=== PATIENT | female | born 1990 | race Caucasian/White ===

== ENCOUNTER 2022-01-28 12:37 | Outpatient (CLI) | payer OTHER, SELFPAY ==
[2022-01-31 14:14] LABS: Dating LMP CONF by US; Family Hx Neural Tube Defect No; Gestati Age Calc at Collection 16 wks, 0 days; Insulin Req Maternal Diabetes No; Maternal Age At Delivery 30.8 yr; Maternal Race Nonblack; Maternal Screen Interpretation Screen Neg; MoM for AFP 1.01; Number of Fetuses Singleton; Patient's AFP 40 ng/mL; Patient's DIA 90 pg/mL; Smoking No
[2022-02-13 12:41] LABS: Client Provided Fam Hx of NTD NO
== END 2022-01-28 12:38 | disposition home or self-care (01) ==
PROVIDERS: PCP Obstetrics & Gynecology; Visit Provider Physician Assistant
DX: Z34.81 Encounter for supervision of other normal pregnancy, first trimester (principal); Z3A.12 12 weeks gestation of pregnancy
CPT/HCPCS: 81511

== ENCOUNTER 2022-02-24 13:47 | Outpatient (CLI) | payer OTHER, SELFPAY ==
--- NOTE | 2022-02-24 14:00 | CRLHL7_ITS ---
For Patients: As a result of the Century Cures Act, medical imaging exams and procedure reports are released immediately into your electronic medical record. You may view this report before your referring provider. If you have questions, please contact your health care provider. INDICATION: 2nd trimester anatomical survey. TECHNIQUE: Ultrasound OB pelvis transabdominal. Real-time webb-scale imaging of the fetus. COMPARISON: None. FINDINGS: Sonographic imaging demonstrates a single living intrauterine gestation. Fetus demonstrates a regular cardiac rate of 131 beats per minute. Fetus is in multiple positions during exam. The placenta lies posterior without evidence of placenta previa. Eccentric three-vessel placental cord insertion. Cord insert is 2.3 cm from the placental margin. Amniotic fluid volume appears normal. Single deepest pocket measures 4.2 cm Cervix is closed and measures 4.1 cm in length. Biometry: Biparietal diameter: 4.3 cm, 19 week 1 day, 21st percentile. Head circumference: 16.3 cm, 19 week 0 day, 11th percentile. Abdominal circumference: 14.3, 19 week 5 day, 37th percentile. Femoral length: 2.9 cm, 18 week 6 day, 13th percentile. The composite ultrasound gestational age is calculated at 19 week 2 day with an estimated sonographic due date of 07/19/2022. The weight is estimated at 283 grams, the 17 percentile. On anatomic survey, there is a normal appearance of the cerebral ventricles, cisterna magna and cerebellum. The nose, lips, and facial profile appear normal. The cervical, thoracic and lumbar spines are well visualized and appear normal. There is a normal four-chamber heart and the left and right ventricular outflow tracts appear normal. diaphragm, stomach, kidneys and bladder appear normal. There is a normal three-vessel cord and cord insertion site. The four extremities appear normal. IMPRESSION: 1.Single viable intrauterine . 2.No intrinsic abnormalities noted on anatomic survey. 3. Eccentric placental cord insertion. Dictated by Keegan Leo MD @ 02/24/2022 9:19:52 PM (Electronically Signed)
== END 2022-02-24 13:48 | disposition home or self-care (01) ==
LOC: US 13:48
PROVIDERS: PCP Obstetrics & Gynecology; Visit Provider Physician Assistant
DX: Z34.92 Encounter for supervision of normal pregnancy, unspecified, second trimester (principal); Z3A.19 19 weeks gestation of pregnancy
CPT/HCPCS: 76805

== ENCOUNTER 2022-04-22 12:44 | Outpatient (CLI) | payer OTHER, SELFPAY ==
[2022-04-24 23:22] LABS: Rapid Plasma Reagin (RPR) Non Reactive (Non Reactive)
== END 2022-04-22 12:45 | disposition home or self-care (01) ==
PROVIDERS: PCP Obstetrics & Gynecology; Visit Provider Registered Nurse
DX: Z34.93 Encounter for supervision of normal pregnancy, unspecified, third trimester (principal); Z3A.28 28 weeks gestation of pregnancy
CPT/HCPCS: 86592; 86850

== ENCOUNTER 2022-06-19 13:05 | Outpatient (CLI) | payer OTHER, SELFPAY ==
[2022-06-20 11:37] LABS: Strep B DNA Probe NEGATIVE (Negative)
[2022-06-20 12:57] LABS: Strep B Pen/Amox Allergy No
== END 2022-06-19 13:06 | disposition home or self-care (01) ==
LOC: NFLDREF 13:05
PROVIDERS: PCP Obstetrics & Gynecology; Visit Provider Obstetrics & Gynecology
DX: Z34.90 Encounter for supervision of normal pregnancy, unspecified, unspecified trimester (principal)
CPT/HCPCS: 87081; 87653

== ENCOUNTER 2022-07-08 04:58 | Inpatient (IN) | payer BC, OTHER, SELFPAY ==
[2022-07-08] VITALS (32 sets, daily range): BP systolic 97–129; BP diastolic 58–82; PULSE 59–89; RESP 14–16; TEMP 36.2–36.7; O2SAT 93–100; BMI 28.7
[2022-07-08] MEDS: LACTATED RINGERS 1000 ML 1,000 ML IV (05:31)
[2022-07-08 05:36] LABS: Basophils Percent Auto 0.3 % (0.0-3.0); Eosinophils Percent Auto 0.5 % (0.0-7.0); Hematocrit 34.2 % (33.0-51.0); Hemoglobin* 12.1 gm/dL (12.0-16.0); Immature Granulocytes Pct Auto 0.3 %; Lymphocytes Percent Auto 17.3 % (20-44); Mean Corpuscular HGB Conc 35 gm/dL (32-36); Mean Corpuscular Hemoglobin 31 pg (26-34); Mean Corpuscular Volume 86 fL (80-100); Neutrophils Percent Auto 74.6 % (42.0-72.0); Platelet Count* 197 K/uL (140-440); RDW Coefficient of Variation % 12.1 % (11.5-15.5); Red Blood Count 3.97 m/uL (4.00-5.20); White Blood Count* 15.05 K/uL (4.50-11.00)
[2022-07-08 05:41] LABS: Slide Review Reflex No
[2022-07-08 05:50] LABS: SARS PCR* Negative SARS-CoV-2 (Negative)
[2022-07-08] MEDS: LACTATED RINGERS 1000 ML 1,000 ML 125 ML IV (06:38)
[2022-07-08] MEDS: CEFAZOLIN 2 GM in 0.9 % SODIUM CHLORIDE Mini-bag 100 ML IVPB (07:15)
--- NOTE | 2022-07-08 07:42 | SUR.OPER ---
Surgeon declined to send placenta specimen
[2022-07-08] MEDS: KETOROLAC 30 MG/ML inj IVP ×3 (07:48→19:46)
--- NOTE | 2022-07-08 08:26 | P.PCN_ITS ---
Procedure Note Time Seen by Provider: 08: Date Seen: 07/08/22 Date of procedure: 07/08/[address] [facility] bill your pro fee for this procedure?: Yes Procedure: Preoperative diagnosis: 31-year-old 2 para 1001 at 39 and 0/7 weeks ad mitted for a scheduled repeat low transverse section. Postoperative diagnosis: Same Procedure: Repeat low-transverse section. Anesthesia: Spinal Surgeon: Alecia Longoria MD [employer] Assistant: REID Obrien Quantitative blood loss: 396 mL IVF: 1200 mL UOP: 500 mL, clear urine at the end of the procedure. Drain(s): Tovar to gravity. Specimen: None Findings: A live male was delivered from the direct OA position at 7:37 a.m. Apgars were 9 at 1 min. and 9 at 5 min., respectively. weight: 7 lb 6 oz. Nuchal cord(s): No. The placenta was delivered spontaneously and complete at 10:39 a.m. Amniotic fluid: Clear. Normal uterus, fallopian tubes and ovaries were noted. Other findings: No abnormalities, minimal adhesions of the fascia to the rectus muscles. Procedure: Ramona was taken to the OR where spinal anesthetic was found be adequate. A Tovar catheter was placed. The patient was then placed in the dorsal supine position with a leftward tilt. She was then prepped and draped in a normal sterile manner. A Pfannenstiel skin incision was made and carried through sharply to the underlying layer of fascia. Fascia was incised in the midline and this incision carried laterally with Márquez scissors. The superior aspect of fascial incision was grasped with Jeff clamps, tented up, and the rectus muscles dissected off with a combination of blunt and bipolar cautery dissection. The inferior aspect of the fascial incision was grasped with Jeff clamps, tented up and again the rectus muscles dissected off with a combination of blunt and sharp dissection. The rectus muscles were in the midline. The peritoneum was identified, clamped with 2 Janett clamps and entered sharply with Metzenbaum scissors. This opening was extended with Márquez scissors in layers with excellent visualization of the bladder throughout. An Dalton-O self- retaining retractor was placed. A bladder flap was not created. Uterus was incised in a low transverse manner in the midline. This incision carried laterally with blunt pressure on the inferior and superior aspects of the uterine incision. The amniotic sac was ruptured. The infant's head and by were delivered atraumatically. The infant was shown to the patient and her support person. The umbilical was clamped and cut immediately/after a 60 second delay. The was then handed to waiting nursing staff. Cord blood was obtained due to the patient's Rh negative blood type. The placenta was delivered spontaneously. The uterus was cleared of clots and debris. The uterine incision was re-approximated with the uterus in vivo. The 1st layer using 0-Vicryl in a running, locked manner. The 2nd layer using 0-Monocryl in a running, vertical, imbricating layer. Additional sutures needed for hemostasis: Yes: 7 figure of 8 sutures using 2-0 chromic. Ron was applied to the uterine incision. Excellent hemostasis was confirmed. The Dalton retractor was removed. The rectus muscles and peritoneum were not reapproximated. The rectus muscles were then closely inspected to verify hemostasis. Hemostasis was obtained with bipolar cautery. The fascia was then reapproximated using 0-Maxon loop in a running manner. The subcutaneous tissue was then irrigated with saline and hemostasis obtained with bipolar cautery. The subcutaneous tissue was reapproximated using 3-0 plain gut interrupted sutures. The skin was reapproximated using 4-0 Monocryl in a running subcuticular manner. Exophin skin adhesive and a Methaplex dressing were applied. The patient tolerated this procedure well. Sponge, lap and instrument counts were correct x2 active to the procedure. Patient was taken to the recovery area in stable condition. The patient received 2 g of IV Ancef prior to skin incision She received 1 g IV TXA after the umbilical cord was clamped. The anesthesiologist placed a TAPS block at the end of the procedure. Surgeon: Alecia Longoria MD
--- NOTE | 2022-07-08 08:41 | W.ANESCHARGE ---
Anesthesia Charges Start Date/Time Anesthesia Start Date: 07/08/22 Anesthesia Start Time: 07:00 Stop Date/Time Anesthesia Stop Date: 07/08/22 Anesthesia Stop Time: 08:38 Summary Emergency: No
--- NOTE | 2022-07-08 09:43 | W.ANESCHARGE ---
Anesthesia Charges Start Date/Time Anesthesia Start Date: 07/08/22 Anesthesia Start Time: 07:00 Stop Date/Time Anesthesia Stop Date: 07/08/22 Anesthesia Stop Time: 08:38 Summary Emergency: No
--- NOTE | 2022-07-08 09:44 | W.PM.NB ---
Nerve Block Nerve Block Time Seen by Provider: 08:27 Date Seen: 07/08/22 Type of block requested by surgeon for post-operative analgesia: TAP Side: bilateral Time out performed: Yes Verification of patient name: Yes Verification of date of : Yes Site marking: site marked Name of person performing procedure: Mayito Continuous monitoring Was continuous monitoring of O2 sat, B/P, operator vacuum, recorded every 15 minutes?: Yes Procedure Checklist: sterile prep, needles and gloves Ultrasound guided. Images saved: Yes Medications given in 5ml increments after negative aspiration: Marcaine %: 0.25 mL: 30 Needle gauge: 20 and Exparel mL: 10 Patient tolerated procedure well: Yes Additional comments: Needle noted adjacent to nerve Block Charges Block Charge (with Pro Fee): TAP Bilateral Use of Ultrasound Machine for Block: Yes- US Guidance/pain block
[2022-07-08] MEDS: ACETAMINOPHEN 500 MG TABLET 1000 MG PO ×2 (11:04→17:02)
[2022-07-08] MEDS: SODIUM CHLORIDE 0.9 % (FLUSH) 10 ML SYRINGE IVF (14:01)
[2022-07-09] VITALS (8 sets, daily range): BP systolic 91–124; BP diastolic 48–87; PULSE 69–90; RESP 14–18; TEMP 36.4–36.9; O2SAT 95–98
[2022-07-09] MEDS: ACETAMINOPHEN 500 MG TABLET 1000 MG PO ×4 (00:04→23:35)
[2022-07-09] MEDS: KETOROLAC 30 MG/ML inj IVP ×3 (02:02→15:05)
--- NOTE | 2022-07-09 08:38 | P.OBPN_ITS ---
Documented by User: Liseth Glasgow CNM 07/09/22 21:47 OB - PN: A/P Assessment and Plan (1) care and examination immediately after delivery: Status: Acute (2) Lactating mother: Status: Acute (3) Status post repeat low transverse section: Problem details: 07:37am, Apgars 9/9, Jase/Ronnie, 7#6oz. QBL 396mL Status: Acute OB - PN: Subj Subjective Time Seen by Provider: 08:39 Date Seen: 07/09/22 Interval history: Subjective: Ramona is a 31 y.o. who was admitted to [facility] for repeat . ?She had an uncomplicated . ? The patient feels well. ?The pain is well controlled with current medications. ?She has no new complaints. ?She is breast feeding and reports things are going well.? the patient has done well.? Vitals have been stable.? She has remained afebrile.? Has a good appetite, is tolerating a general diet. ?She is voiding without difficulty.? She is passing gas and has not had a bowel movement.? She is ambulating and denies any dizziness.? Has Small amount of rubra lochia.?? Objective: VSS. ?Afebrile GENERAL APPEARANCE: ?normal affect, alert, no distress MOOD: ?appropriate HEENT: normocephalic, neck supple, full ROM CHEST: ?Symmetrical chest wall movement. ?Normal respiratory effort. ?Clear to auscultation HEART: ?regular rate and rhythm ABDOMEN: ?soft, non-tender. Uterine fundus is firm, Midline and is appropriate for the stage of recovery. ?Per RN. EXTREMITIES: ?normal and no edema SKIN: warm, dry. ?Incision clean/dry/well approximated. ?No signs of infection noted. Assessment/Plan G 2 P 2 status post uncomplicated repeat . Lactating Mother 1. ?Continue routine PP cares 2. ?. ?May see if desired 3. ?Anticipate discharge home tomorrow or the following day per pt preference [4. ?Acute anemia. ?Iron supplement ordered] [Other Problems/plan] Patient comments: no complaints, pain well controlled, tolerating diet and flatus present infant status: and doing well [place] feeding status: exclusively OB - PN: Obj Exam Physical Exam: Vital signs: Temp Pulse Resp BP Pulse Ox O2 Del Method 98.4 F 73 16 100/66 95 07/09/22 08:25 07/09/22 08:25 07/09/22 08:25 07/09/22 08:25 07/09/22 08:25 07/09/22 08:25 Urinary Catheter Management: Urethral: Cath placed during this visit: yes, but has since been removed by the nurse Reason for continuing: surgical procedure Insertion date: 07/08/22 Insertion time: 07:15 Removal date: 07/08/22 Removal time: 16:00 OB - PN: Obj Data Labs Labs: Laboratory Results - last 24 hr 07/08/22 05:25 Antibody Identification Anti-D Documented by User: Lynda Huerta CNM 07/11/22 09:17 OB - PN: A/P Assessment and Plan (1) care and examination immediately after delivery: Status: Acute (2) Lactating mother: Status: Acute (3) Status post repeat low transverse section: Problem details: 07:37am, Apgars 9/9, Jase/Ronnie, 7#6oz. QBL 396mL Status: Acute Plan Assessment/Plan G 2 P 2 status post uncomplicated repeat . Lactating Mother 1. ?Continue routine PP cares 2. ?. ?May see if desired 3. ?Anticipate discharge home tomorrow or the following day per pt preference Plan day: 1 Plan: routine postop care OB - PN: Subj Subjective Interval history: Subjective: Ramona is a 31 y.o. who was admitted to [facility] for repeat . ?She had an uncomplicated . ? The patient feels well. ?The pain is well controlled with current medications. ?She has no new complaints. ?She is breast feeding and reports things are going well.? the patient has done well.? Vitals have been stable.? She has remained afebrile.? Has a good appetite, is tolerating a general diet. ?She is voiding without difficulty.? She is passing gas and has not had a bowel movement.? She is ambulating and denies any dizziness.? Has Small amount of rubra lochia.?? OB - PN: Obj Exam Physical Exam: Narrative: Objective: VSS. ?Afebrile GENERAL APPEARANCE: ?normal affect, alert, no distress MOOD: ?appropriate HEENT: normocephalic, neck supple, full ROM CHEST: ?Symmetrical chest wall movement. ?Normal respiratory effort. ?Clear to auscultation HEART: ?regular rate and rhythm ABDOMEN: ?soft, non-tender. Uterine fundus is firm, Midline and is appropriate for the stage of recovery. ?Per RN. EXTREMITIES: ?normal and no edema SKIN: warm, dry. ?Incision clean/dry/well approximated. ?No signs of infection noted. Urinary Catheter Management: Urethral: Cath placed during this visit: yes, but has since been removed by the nurse
[2022-07-09] MEDS: DOCUSATE SODIUM 100 MG CAPSULE PO (08:48)
[2022-07-09 15:34] LABS: Hemoglobin* 11.2 gm/dL (12.0-16.0)
[2022-07-09] MEDS: IBUPROFEN 600 MG TABLET PO (21:16)
[2022-07-10] MEDS: IBUPROFEN 600 MG TABLET PO ×2 (04:00→10:28)
[2022-07-10 04:03] VITALS: BP 112/70; PULSE 84; RESP 16; TEMP 36.6; O2SAT 95
[2022-07-10] MEDS: OXYCODONE 5 MG TABLET PO ×2 (06:08→10:28)
[2022-07-10] MEDS: ACETAMINOPHEN 500 MG TABLET 1000 MG PO (06:09)
--- NOTE | 2022-07-10 07:25 | P.DS_ITS ---
DS: Providers Provider Date Seen: 07/10/22 Date of admission: 07/08/22 04:58 Primary care physician: Alecia Longoria MD Admitting Clinician: Alecia Longoria MD Attending Physician on discharge: JAYDE Roque SNM Date of Discharge: 07/10/22 DS: Diagnosis Discharge Diagnosis (1) care and examination immediately after delivery: Status: Acute (2) Lactating mother: Status: Acute (3) Status post repeat low transverse section: Status: Acute Problem details: 07:37am, Apgars 9/9, Jase/Ronnie, 7#6oz. QBL 396mL Exam Const: Vital Signs, click to edit/add: Vital Signs - 24 hr 07/09/22 08:25 07/09/22 15:20 07/09/22 17:33 Temperature 98.4 F 98.0 F 97.5 F L Pulse Rate 73 Pulse Rate [Pulse Oximeter] 73 83 Respiratory Rate 16 16 18 Blood Pressure 121/87 Blood Pressure [Ri ght Arm] 100/66 120/83 Pulse Oximetry 95 98 Oxygen Delivery Me thod Room Air Room Air 07/09/22 19:34 07/10/22 04:03 Temperature 98.5 F 97.8 F Pulse Rate Pulse Rate [Pulse Oximeter] 90 84 Respiratory Rate 16 16 Blood Pressure Blood Pressure [Ri ght Arm] 124/76 112/70 Pulse Oximetry 98 95 Oxygen Delivery Me thod Room Air Room Air Documenting provider has reviewed patient's vital signs: yes Common normals: no apparent distress, oriented x3, healthy appearing and alert HENMT: Common normals: normocephalic Head and scalp: normocephalic Eye: Common normals: PERRL Pupil: PERRL Neck & C-Spine: Common normals: full ROM and supple Chest: Common normals: inspection of chest normal Resp: Common normals: normal respiratory effort and clear to auscultation bilaterally Auscultation: clear to auscultation bilaterally Cardio: Common normals: regular rate and regular rhythm Rate: regular rate Rhythm: regular rhythm GI: Common normals: soft to palpation Inspection: incision (Lower abdominal transverse: glue. Well appoximated, clean/dry) Palpation: soft : Uterus: U/U Lochia: scant Back & Pelvis: Common normals: thoracic and lumbar spine normal to inspection Extremity: Common normals: normal to inspection and full ROM Neuro: Common normals: oriented x3 Sensorium/orientation: alert Speech: speech normal Psych: Common normals: mental status grossly normal, thought process normal, speech normal and activity/motor behavior normal Speech: normal speech Thought process: normal thought process Skin: Common normals: no rashes or lesions noted General skin exam: no rashes or lesions noted DS: Data Data Completed and Pending Labs on day of discharge: Labs from last 24 hours 07/09/22 07/09/22 07:06 07:06 Hgb 11.2 L Screen Negative OB - DS: Summary Hospital Course Hospital Course: The patient is a 31 year old G 2 P 2 at 39 0/7 weeks gestation that was admitted to the Center on 07/08/22 for repeat section. She had an uncomplicated delivery. She delivered a viable male . the patient has done well. The pain is well controlled with current medications.? She has no new complaints.? Urinary output is adequate and she is voiding without difficulty.? Has a good appetite, is tolerating a general diet, is passing flatus, and has had a small bowel movement.? Has scant amount of rubra lochia.? She is ambulating well. She is and reports it is going well.? Peripartum Data Procedures: Procedures Operation Date: 07/08/22 07:00 Actual Procedure Side Surgeon p Section Alecia Longoria MD complications: none [place] Infant Gender: Male Discharge Plan: Home Status at Discharge Functional status at discharge: independent ambulation Overall status at discharge: patient is progressing back to baseline Time Spent with Patient Time attestation: Total time spent providing and/or coordinating discharge services: Discharge Plan Discharge Disposition: Home, Self-Care Date of Admission: 07/08/22 04:58 Attending Provider on Discharge: Corry Henderson Primary Care Provider: Alecia Longoria Condition: Stable Anticipated Discharge Date/Time: 07/10/22 12:30 Discharge Medications: New docusate sodium 100 mg Capsule 100 mg PO BID PRN (Reason: constipation) Qty: 100 0RF ibuprofen 600 mg Tablet 600 mg PO Q6H PRN (Reason: Pain) Qty: 30 0RF oxycodone 5 mg Tablet 5 mg PO 3XD PRN (Reason: Pain) Qty: 21 0RF Continued DHA 200 mg capsule 200 mg PO DAILY calcium carbonate [Tums] 200 mg calcium (500 mg) tablet,chewable 200 mg PO BID PRN Discharge Orders: Discharge Order (Routine); Ordered 07/10/22 Ordered By: Corry Henderson Patient Education: OB /Breast Feeding Additional Instructions: Discharge instructions were reviewed with the patient including signs and symptoms of infection and home going medications ACTIVITY RESTRICTIONS: Lifting Restrictions: 20 pounds for 6 weeks No not submerge incision under water X 2 weeks? Nothing vaginally for 6 weeks: no tampons or intercourse Do not drive while taking narcotic pain medication(s) No high impact, core or strenuous exercise for 6 weeks Off Work or School for 8 weeks Showering: No restriction Walking, walking up/down stairs: No restriction Symptoms to report to doctor: * Bleeding that saturates more than one pad per hour * Passing clots larger than the size of a golf ball * Pain not relieved by prescribed medication * Fever above 100.4 degrees Fahrenheit * A foul vaginal odor * Difficulty in emotions, mood, and functions * Thoughts of hurting yourself and/or * Painful, reddened area in your breast * Any drainage, redness, or tenderness in your IV/epidural site * Severe headache that doesn't improve after taking medications * Changes in vision, including temporary loss of vision, blurred vision, and/or light sensitivity * Upper abdominal pain (usually under ribs on the right side) * Decrease in urination or painful, frequent urinating * Chest pain * Shortness of breath * Tenderness or pain with redness and/swelling in the calf(s) of your leg FOLLOW-UP APPOINTMENTS: 2-week visit: incision check, discuss feeding concerns, review control options and screen for anxiety/depression. 6-week visit for a physical exam. consultation services are available to all mothers and babies for the first year after delivery.? To make an appointment, please call [phone]. Activity Level: Activity as Tolerated Discharge Diet: Regular Follow Up Appointments: [facility] [Provider Group] (2 weeks and 6 weeks visit) Forms: Infogram Info Instructions
[2022-07-10 07:30] VITALS: BP 128/84; PULSE 93; RESP 14; TEMP 36.8; O2SAT 98
[2022-07-10] MEDS: DOCUSATE SODIUM 100 MG CAPSULE PO (10:28)
== END 2022-07-10 12:08 | disposition home or self-care (01) | DRG 540 ==
PROVIDERS: Admitting Provider Obstetrics & Gynecology; PCP Obstetrics & Gynecology; Visit Provider Obstetrics & Gynecology
PROC: 10D00Z1 Extraction of Products of Conception, Low, Open Approach (ICD-10-PCS; CPT 59514; principal; 2022-07-08 07:00)
DX: O34.211 Maternal care for low transverse scar from previous cesarean delivery (principal); O90.81 Anemia of the puerperium; D62 Acute posthemorrhagic anemia; Z3A.39 39 weeks gestation of pregnancy; Z37.0 Single live birth
CPT/HCPCS: 01961; 36415; 64488; 76942; 85018; 85025; 85461; 86850; 86870; 86880; 86900; 86901; 87635; A9270; C9290; J0690; J1885; J2274; J2370; J2590; J2791; J3490; J7120